=== PATIENT | female | born 1950 | race Caucasian/White ===

== ENCOUNTER → 2017-04-06 | Outpatient (CLI) | payer MEDICARE, BC ==
[2016-01-14 10:29] VITALS: BP 165/72
[~2017-04-06] MED LIST: ATENOLOL50 MG PO; LOVASTATIN20 M1 PO; MINOCYCLINE HC100 MG PO; NORCO 325 MG-7.1 TAB PO; PAROXETINE HYDR30 MG PO; ULTRAM50 M1 PO
== END ==
LOC: LAB 14:33
DX: M25.512 Pain in left shoulder (principal)

== ENCOUNTER → 2017-06-07 | Outpatient (CLI) | payer MEDICARE, BC ==
[2016-01-14 10:29] VITALS: BP 165/72
== END ==
LOC: MAMMO 10:11
DX: Z12.31 Encounter for screening mammogram for malignant neoplasm of breast (principal)
CPT/HCPCS: G0202

== ENCOUNTER → 2017-07-02 | Day surgery (SDC) | payer MEDICARE, BC ==
[2016-01-14 10:29] VITALS: BP 165/72
== END ==
LOC: MSO 08:14
DX: K22.2 Esophageal obstruction (principal); K21.9 Gastro-esophageal reflux disease without esophagitis; K44.9 Diaphragmatic hernia without obstruction or gangrene; K29.70 Gastritis, unspecified, without bleeding; I10 Essential (primary) hypertension; R00.2 Palpitations; F41.9 Anxiety disorder, unspecified; F32.9 Major depressive disorder, single episode, unspecified; E05.00 Thyrotoxicosis with diffuse goiter without thyrotoxic crisis or storm
CPT/HCPCS: J7120

== ENCOUNTER 2017-09-07 13:00 | Outpatient (RCR) | payer MEDICARE, BC ==
[2016-01-14 10:29] VITALS: BP 165/72
== END 2017-09-07 13:30 | disposition home or self-care (01) ==
LOC: PT 13:00
DX: M25.511 Pain in right shoulder (principal)
CPT/HCPCS: G8985-GP

== ENCOUNTER 2018-03-05 09:07 | Emergency (ER) | payer MEDICARE, BC ==
[~2018-03-05] VITALS: Wt 80.9 kg
[2018-03-05 09:56] LABS: EOS # 0.3 (0.04-0.40); EOS % 2.3 % (1.0-5.0); HEMATOCRIT 38.5 % (37.0-47.0); HEMOGLOBIN 11.8 g/dL (12.5-16.0); LYMPH# 2.2 (1.50-4.00); MEAN CELL VOLUME 86 fl (78-100); MEAN CORPUSCULAR HEMOGLOBIN 26 pg (27-31); MEAN CORPUSCULAR HGB CONC 31 g/dL (33-37); MEAN PLATELET VOLUME 10.5 fl (7.4-10.4); MONO # 1.2 (0.20-0.80); NEU # 7.8 (1.40-6.50); PLATELET COUNT 273 K/mm3 (130-400); RED BLOOD COUNT 4.49 M/mm3 (4.10-5.30); RED CELL DISTRIBUTION WIDTH 15.5 % (11.5-14.5); WHITE BLOOD COUNT 11.5 K/mm3 (4.8-10.8)
[2018-03-05 10:11] LABS: PARTIAL THROMBOPLASTIN TIME 23.8 SECONDS (21.0-32.0); PROTHROMBIN TIME 10.3 SECONDS (9.0-12.0)
[2018-03-05 10:14] LABS: BUN/CREATININE RATIO 13.9 (6.0-26.0); CALCIUM 8.6 mg/dL (8.4-10.2); POTASSIUM 3.1 mmol/L (3.6-5.0); TOTAL BILIRUBIN 0.3 mg/dL (0.2-1.3); TOTAL PROTEIN 7.4 g/dL (6.3-8.2)
[2018-03-05] MEDS ORDERED: TAPAZOLE 5MG TAB5 MG PO (10:55)
[2018-03-05] MEDS ORDERED: OMEPRAZOLE40 MG PO (11:38)
[2018-03-05 11:40] LABS: URINE APPEARANCE CLEAR; URINE BILIRUBIN NEGATIVE (NEGATIVE); URINE BLOOD NEGATIVE (NEGATIVE); URINE COLOR YELLOW; URINE GLUCOSE 50 mg/dL mg/dL (NEGATIVE); URINE KETONE NEGATIVE (NEGATIVE); URINE LEUKOCYTE ESTERASE NEGATIVE (NEGATIVE); URINE NITRATE NEGATIVE (NEGATIVE); URINE PROTEIN(semi-quant) 1+ mg/dL (NEGATIVE); URINE UROBILINOGEN NORMAL (NORMAL)
[2018-03-05] MEDS ORDERED: LISINOPRIL40 MG PO (11:50)
[2018-03-05 14:51] VITALS: BP 149/66
== END 2018-03-05 15:25 | disposition short-term general hospital (02) ==
LOC: ED 09:07
PROVIDERS: Nurse Practitioner Family
DX: I16.1 Hypertensive emergency (principal); R42 Dizziness and giddiness; R73.03 Prediabetes; E78.5 Hyperlipidemia, unspecified
CPT/HCPCS: J2405; J7030

== ENCOUNTER → 2018-03-29 | Outpatient (CLI) | payer MEDICARE, BC ==
[2018-03-05 14:51] VITALS: BP 149/66
[~2018-03-29] MED LIST changes: +LISINOPRIL40 MG PO; +OMEPRAZOLE40 MG PO; +TAPAZOLE 5MG TAB5 MG PO
== END ==
LOC: CARDREHAB 07:53 → CARDLAB 12:05
DX: I49.3 Ventricular premature depolarization (principal); Z82.49 Family history of ischemic heart disease and other diseases of the circulatory system
CPT/HCPCS: A9500

== ENCOUNTER 2018-04-19 13:00 | Outpatient (RCR) | payer MEDICARE, BC | END 2018-06-10 | disposition home or self-care (01) | LOC: PT | DX: R42 Dizziness and giddiness (principal) ==

== ENCOUNTER → 2018-06-11 | Outpatient (CLI) | payer MEDICARE, BC | LOC: MAMMO 11:25 | DX: Z12.31 Encounter for screening mammogram for malignant neoplasm of breast (principal) ==

== ENCOUNTER → 2018-10-22 | Outpatient (CLI) | payer MEDICARE, BC | LOC: RAD 11:14 → MAMMO 11:30 | DX: Z13.820 Encounter for screening for osteoporosis (principal); M85.852 Other specified disorders of bone density and structure, left thigh; M85.851 Other specified disorders of bone density and structure, right thigh; M85.88 Other specified disorders of bone density and structure, other site ==

== ENCOUNTER 2019-03-29 14:19 | Emergency (ER) | payer MEDICARE, BC ==
[~2019-03-29] VITALS: Ht 172.7 cm; Wt 80.9 kg
[2019-03-29] MEDS ORDERED: MELOXICAM7.5 MG PO (15:08)
[2019-03-29] MEDS ORDERED: LOSARTAN POTAS100 MG PO (15:08)
[2019-03-29 15:36] LABS: EOS # 0.3 (0.04-0.40); EOS % 3.2 % (1.0-5.0); HEMATOCRIT 38.3 % (37.0-47.0); MEAN CELL VOLUME 91 fl (78-100); MEAN CORPUSCULAR HEMOGLOBIN 29 pg (27-31); MEAN CORPUSCULAR HGB CONC 31 g/dL (33-37); MEAN PLATELET VOLUME 10.5 fl (7.4-10.4); MONO # 0.9 (0.20-0.80); NEU # 5.9 (1.40-6.50); PLATELET COUNT 235 K/mm3 (130-400); RED BLOOD COUNT 4.21 M/mm3 (4.10-5.30); RED CELL DISTRIBUTION WIDTH 14.4 % (11.5-14.5); WHITE BLOOD COUNT 9.1 K/mm3 (4.8-10.8)
[2019-03-29 15:46] LABS: POTASSIUM 4.5 mmol/L (3.5-5.1)
[2019-03-29 15:47] LABS: CALCIUM 9.3 mg/dL (8.3-10.5)
[2019-03-29 15:50] LABS: TOTAL BILIRUBIN 0.2 mg/dL (0.2-1.2)
[2019-03-29 17:00] VITALS: BP 134/65
== END 2019-03-29 17:07 | disposition home or self-care (01) ==
LOC: ED 14:19
PROVIDERS: Family Medicine
DX: G45.9 Transient cerebral ischemic attack, unspecified (principal); I10 Essential (primary) hypertension; E78.5 Hyperlipidemia, unspecified; E05.90 Thyrotoxicosis, unspecified without thyrotoxic crisis or storm; Z98.890 Other specified postprocedural states

== ENCOUNTER → 2019-04-17 | Outpatient (CLI) | payer MEDICARE, BC ==
[2019-03-29 17:00] VITALS: BP 134/65
[~2019-04-17] MED LIST changes: +LOSARTAN POTAS100 MG PO; +MELOXICAM7.5 MG PO
== END ==
LOC: RAD 15:00
DX: I65.23 Occlusion and stenosis of bilateral carotid arteries (principal)

== ENCOUNTER → 2019-07-23 | Outpatient (CLI) | payer MEDICARE, BC | LOC: MAMMO 13:00 | DX: Z12.31 Encounter for screening mammogram for malignant neoplasm of breast (principal) ==

== ENCOUNTER → 2019-11-05 | Day surgery (SDC) | payer MEDICARE, BC | END | disposition home or self-care (01) | LOC: MSO 09:50 | DX: H25.812 Combined forms of age-related cataract, left eye (principal); I10 Essential (primary) hypertension; E78.00 Pure hypercholesterolemia, unspecified; E05.90 Thyrotoxicosis, unspecified without thyrotoxic crisis or storm; Z79.02 Long term (current) use of antithrombotics/antiplatelets; Z79.899 Other long term (current) drug therapy; Z88.8 Allergy status to other drugs, medicaments and biological substances; Z86.73 Personal history of transient ischemic attack (TIA), and cerebral infarction without residual deficits | CPT/HCPCS: 00142; J0171; J2250; V2632 ==

== ENCOUNTER → 2019-11-05 | Outpatient (CLI) | payer MEDICARE, BC ==
[2019-11-05 10:48] LABS: EOS # 0.4 (0.04-0.40); EOS % 4.4 % (1.0-5.0); HEMATOCRIT 40.5 % (37.0-47.0); HEMOGLOBIN 12.3 g/dL (12.5-16.0); MEAN CELL VOLUME 89 fl (78-100); MEAN CORPUSCULAR HEMOGLOBIN 27 pg (27-31); MEAN CORPUSCULAR HGB CONC 30 g/dL (33-37); MEAN PLATELET VOLUME 10.7 fl (7.4-10.4); MONO # 0.8 (0.20-0.80); NEU # 4.7 (1.40-6.50); PLATELET COUNT 244 K/mm3 (130-400); RED BLOOD COUNT 4.56 M/mm3 (4.10-5.30); RED CELL DISTRIBUTION WIDTH 13.7 % (11.5-14.5); WHITE BLOOD COUNT 7.9 K/mm3 (4.8-10.8)
[2019-11-05 11:01] LABS: ALBUMIN 4.3 g/dL (3.4-4.8); POTASSIUM 3.5 mmol/L (3.5-5.1)
[2019-11-05 11:02] LABS: CALCIUM 9.4 mg/dL (8.3-10.5)
[2019-11-05 11:04] LABS: TOTAL PROTEIN 7.1 g/dL (6.2-8.1)
[2019-11-05 11:05] LABS: TOTAL BILIRUBIN 0.4 mg/dL (0.2-1.2)
== END ==
LOC: LAB 09:55
PROVIDERS: Family Medicine
DX: E83.51 Hypocalcemia (principal); D72.829 Elevated white blood cell count, unspecified; E78.5 Hyperlipidemia, unspecified; E05.00 Thyrotoxicosis with diffuse goiter without thyrotoxic crisis or storm

== ENCOUNTER → 2020-08-04 | Outpatient (CLI) | payer MEDICARE, BC | LOC: MAMMO 09:45 | DX: Z12.31 Encounter for screening mammogram for malignant neoplasm of breast (principal) ==

== ENCOUNTER → 2020-12-02 | Outpatient (CLI) | payer MEDICARE, BC | LOC: RAD 09:46 → MAMMO 10:00 → RAD 10:00 | DX: Z13.820 Encounter for screening for osteoporosis (principal); M85.80 Other specified disorders of bone density and structure, unspecified site; Z78.0 Asymptomatic menopausal state ==

== ENCOUNTER → 2021-08-17 | Outpatient (CLI) | payer MEDICARE, BC | LOC: MAMMO 11:16 | DX: Z12.31 Encounter for screening mammogram for malignant neoplasm of breast (principal) ==

== ENCOUNTER → 2022-12-05 | Outpatient (CLI) | payer MEDICARE, BC | LOC: MAMMO 13:45 | DX: Z12.31 Encounter for screening mammogram for malignant neoplasm of breast (principal); M85.80 Other specified disorders of bone density and structure, unspecified site ==

== ENCOUNTER → 2022-12-05 | Outpatient (CLI) | payer MEDICARE, BC | LOC: RAD 13:51 → MAMMO 14:30 → RAD 14:30 | DX: Z12.31 Encounter for screening mammogram for malignant neoplasm of breast (principal); M85.89 Other specified disorders of bone density and structure, multiple sites ==